=== PATIENT | male | born 1945 | race Caucasian/White ===

== ENCOUNTER → 2024-02-05 09:41 | Outpatient (REF) | payer OTHER, SELFPAY | LOC: HWRAD 09:41 | PROVIDERS: ATTENDING PHYSICIAN Internal Medicine | DX: S89.91XA Unspecified injury of right lower leg, initial encounter (principal) | CPT/HCPCS: 73564 ==

== ENCOUNTER → 2024-02-09 15:26 | Outpatient (REF) | payer OTHER, SELFPAY | LOC: HWRAD 15:26 | PROVIDERS: ATTENDING PHYSICIAN Orthopaedic Surgery; FAMILY PHYSICIAN Internal Medicine | DX: M97.11XA Periprosthetic fracture around internal prosthetic right knee joint, initial encounter (principal); Z96.652 Presence of left artificial knee joint; S72.491A Other fracture of lower end of right femur, initial encounter for closed fracture | CPT/HCPCS: 73700 ==

== ENCOUNTER 2024-04-09 14:37 | Emergency (ER) | payer OTHER, SELFPAY ==
[2024-04-09 14:53] VITALS: BMI 28.3
[2024-04-09] MEDS: ADACEL 0.5 ML IM (14:55)
[2024-04-09] MEDS: TYLENOL 1000 MG PO (15:04)
--- NOTE | 2024-04-09 15:47 | ED.SKININJ ---
HPI-Injury
General
Chief Complaint: Head Injury
Source: patient
Exam Limitations: none
Time Seen by Provider: 04/09/24 15:08
Nursing documentation reviewed up to this point in time: agreed with
History of Present Illness-Injury
Is this injury a work related problem?: No
Is pt an associate of [facility]?: No
Initial Injury comments:
Patient states he was leaf blowing and tripped. Fell and hit left forehead on ground. No LOC. He has a large laceration, large hematoma to site. Incident occurred today. Brought self to ED for eval.
Past History
Past History
ED Past Medical History: CVA and HTN
ED Past Surgical History: Orthopedic
Review of Systems
Review of Systems
Allergies reviewed?: Yes
All Other Systems: ROS reviewed and negative except as documented in HPI and ROS
Constitutional: Reports no symptoms
EENT: Reports no symptoms
Respiratory: Reports no symptoms
Cardiac: Reports no symptoms
ABD/GI: Reports no symptoms
: Reports no symptoms
Musculoskeletal: Reports no symptoms
Skin: Reports other (Large hematoma and laceration to left forehead)
Neurological: Reports no symptoms
Psychiatric: Reports no symptoms
Skin Exam
Laceration
Left Forehead:
Length in cm: 5
Orientation: horizontal
Type of Laceration: complex
Any active bleeding?: low grade venous oozing (large hematoma at site)
Distal skin color and temperature: normal-warm & good color
Normal distal neurovascular exam: Yes
Range of motion: full
Phy Exam
General Physical Exam
General Presentation: well appearing and no apparent distress
General age: appears stated age
General Skin: warm and dry
General Habitus: normal
General Mental: alert
Eye Exam
Eye Exam: PERRL, EOMI, conjunctiva normal and globe normal (large amt swelling and bruising to left orbit)
Neurological Exam
Neurological Exam: alert, oriented x3, CN II-XII intact, no motor deficits, no sensory deficits and speech normal
Julisa Coma Scale
Eye Opening: Spontaneous
Verbal Response: Oriented
Motor Response: Obeys Commands
GCS Total Score: 15
Musculoskeletal Exam
Musculoskeletal Exam: full ROM and no edema
Skin Exam
Skin Exam: normal color, warm/dry, no rash and other (Large hematoma and laceration left forehead )
Psychiatric Exam
Psychiatric Exam: normal mood/affect
Course
Orders/Labs/Results
Orders:
Orders
04/09/24 14:45
CT Facial Bones W/o Iv Contras Urgent
Comment:
Reason For Exam: fall forward hit face
Tetanus/Diphth/Acelpertussis [Adacel] 0.5 ml IM .ONCE ONE
04/09/24 14:46
CT Head W/o Iv Contrast Urgent
Comment:
Reason For Exam: fall large forehead laceration
04/09/24 15:03
Acetaminophen [Tylenol] 1,000 mg .ROUTE .STK-MED ONE
04/09/24 15:04
Acetaminophen [Tylenol] 1,000 mg PO NOW STA
MDM/Problems Addressed
Differential Diagnosis Includes:
Patient to ED s/p trip and fall. Large laceration to left forehead with large hematoma. Neuro status is baseline. He remains awake and alert, conversant. CT of head and facial bones reviewed. No acute cerebral bleed, no acute facial or skull fx.
Discussed results with patient. Will discharge home, follow up with PCP. Given instructions on s/s to return to ED and he is agreeable to plan.
*Critical Care Note
Total Time (30-74mins, 75-104mins- exclusive of procedures): Not Applicable
ED Attending Note
-
Portions of this chart may have been created with voice recognition software.� Occasional wrong word or��sound alike� substitutions may have occurred due to the inherent limitations of voice recognition software.
Discharge Plan
Departure
Patient Disposition: Home (Routine Discharge)
Date of Disposition: 04/09/24
Time of Disposition: 16:42
Patient with high blood pressure during this ER visit?: No
Condition: Good
Covid-19: Not Applicable
Discharge Problem:
Head injury, Facial laceration, Hematoma
Instructions: Head Injury in Adults (DC), Contusion (DC), Laceration Repair With Stitches (DC)
Referrals:
NONE,* [Family Provider] -
Activity Restrictions/Additional Instructions:
Sutures can be removed in 7-10 days by your family doctor.
Interventions
Interventions:
*Risk Screen - Suicide Last Done: 04/09/24 14:54
*General Assessment Last Done: 04/09/24 14:54
*Neglect/Abuse Screening Last Done: 04/09/24 14:54
*ED COVID-19 Vaccine History Last Done: 04/09/24 14:54
Discharge Date and Time
Print Language: LITHUANIAN
== END 2024-04-09 16:59 | disposition home or self-care (01) ==
LOC: EMR 14:37
PROVIDERS: EMERGENCY PHYSICIAN Emergency Medicine
DX: S01.81XA Laceration without foreign body of other part of head, initial encounter (principal); S00.03XA Contusion of scalp, initial encounter; X58.XXXA Exposure to other specified factors, initial encounter; I10 Essential (primary) hypertension; Z86.73 Personal history of transient ischemic attack (TIA), and cerebral infarction without residual deficits
CPT/HCPCS: 99284; 90471; 70450; 70486; 90715

== ENCOUNTER → 2024-04-19 13:26 | Outpatient (REF) | payer OTHER, SELFPAY | LOC: HWRAD 13:26 | PROVIDERS: FAMILY PHYSICIAN Internal Medicine | DX: G89.4 Chronic pain syndrome (principal); M47.812 Spondylosis without myelopathy or radiculopathy, cervical region | CPT/HCPCS: 72050; 72110; 73030 ==

== ENCOUNTER → 2024-12-24 10:31 | Outpatient (REF) | payer OTHER, SELFPAY | LOC: HWRAD 10:31 | PROVIDERS: ATTENDING PHYSICIAN Student in an Organized Health Care Education/Training Program | DX: G89.4 Chronic pain syndrome (principal) | CPT/HCPCS: 73502 ==